=== PATIENT | female | born 1950 | race Caucasian/White ===

== ENCOUNTER 2017-04-11 08:24 | Outpatient (CLI) | payer MEDICARE, OTHER ==
[2017-04-11 08:53] LABS: BASOPHILS % (AUTO) 0.7 %; EOSINOPHILS # (AUTO) 0.1 10^3/uL (0.0-0.7); EOSINOPHILS % (AUTO) 2.2 %; HGB - HEMOGLOBIN 13.6 g/dL (12.0-16.0); LYMPHOCYTES # (AUTO) 1.9 10^3/uL (1.5-3.5); LYMPHOCYTES % (AUTO) 30.8 %; MEAN CORPUSCULAR HEMOGLOBIN 32.1 pg (27.0-31.0); MEAN CORPUSCULAR HGB CONC 33.9 g/dL (32.0-36.0); MEAN CORPUSCULAR VOLUME 94.6 fL (81.0-99.0); MEAN PLATELET VOLUME 7.6 fL (7.9-10.8); MONOCYTES # (AUTO) 0.4 10^3/uL (0.0-1.0); NEUTROPHILS # (AUTO) 3.7 10^3/uL (1.5-6.6); NEUTROPHILS % (AUTO) 59.3 %; PLT - PLATELET COUNT 224 10^3/uL (130-450); RED BLOOD COUNT 4.24 10^6/uL (4.20-5.40); WHITE BLOOD COUNT 6.2 x10^3/uL (4.8-10.8)
[2017-04-11 09:23] LABS: ALBUMIN 3.9 g/dL (3.2-5.5); ALBUMIN/GLOBULIN RATIO 1.5 (1.0-2.2); ALKALINE PHOSPHATASE 64 IU/L (42-121); ALT ALANINE AMINOTRANSFERASE 26 IU/L (10-60); AST ASPARTATE AMINOTRANSFERASE 22 IU/L (10-42); BILIRUBIN,TOTAL 0.7 mg/dL (0.2-1.0); BUN - BLOOD UREA NITROGEN 16 mg/dL (6-20); CALCIUM 9.2 mg/dL (8.5-10.3); CARBON DIOXIDE - CO2 26 mmol/L (21-32); CHLORIDE 105 mmol/L (101-111); CHOL/HDL RATIO 4.9 (<4.4); CHOLESTEROL 276 mg/dL; CREATININE 0.9 mg/dL (0.4-1.0); GFR - MDRD 63 (>89); GLUCOSE 89 mg/dL (70-100); HDL CHOLESTEROL 56 mg/dL; LDL CHOLESTEROL,CALCULATED 196 mg/dL; LDL/HDL RATIO 3.5 (<4.4); SODIUM 140 mmol/L (135-145); TOTAL PROTEIN 6.5 g/dL (6.7-8.2); VLDL CHOLESTEROL 24 mg/dL
[2017-04-11 10:24] LABS: THYROID STIMULATING HORMONE 2.37 uIU/mL (0.34-5.60)
[2017-04-11 10:26] LABS: FREE T4 (FREE THYROXINE) 0.73 ng/dL (0.58-1.64)
== END 2017-04-11 08:25 | disposition home or self-care (01) ==
LOC: LAB 08:24
PROVIDERS: ATTEND Family Medicine
DX: K21.9 Gastro-esophageal reflux disease without esophagitis (principal); E78.5 Hyperlipidemia, unspecified; E03.9 Hypothyroidism, unspecified; D72.819 Decreased white blood cell count, unspecified
CPT/HCPCS: 36415; 80053; 80061; 83721; 84439; 84443; 85025

== ENCOUNTER 2017-05-10 10:45 | Outpatient (CLI) | payer MEDICARE, OTHER | END 2017-05-10 10:46 | disposition home or self-care (01) | LOC: LAB.WCP 10:45 | PROVIDERS: ATTEND Family Medicine | DX: R05 Cough (principal) | CPT/HCPCS: 87275; 87276 ==

== ENCOUNTER 2017-06-24 08:48 | Outpatient (CLI) | payer MEDICARE, OTHER ==
--- NOTE | 2017-06-25 11:14 | Mammography Report ---
DIGITAL SCREENING MAMMOGRAM: 06/24/2017 CLINICAL INDICATION: A 66-year-old with family history of breast cancer, history of benign biopsy, history of reduction mammoplasty for screening. COMPARISON: 02/2015, 03/2013, 01/2012, 07/2010, 05/2009. TECHNIQUE: Routine CC and MLO projections were obtained of the breasts. FINDINGS: The breasts demonstrate scattered fibroglandular densities bilaterally. Postoperative changes of reduction mammoplasty are stable. Coarse and punctate, typically benign calcifications are present. No suspicious masses, clustered microcalcifications, or regions of architectural distortion are identified. IMPRESSION: BENIGN FINDINGS. RECOMMENDATION: Routine annual screening unless otherwise clinically indicated. BIRADS CATEGORY 2 - BENIGN FINDINGS. STANDARD QUALIFYING STATEMENTS: 1. This examination was reviewed with the aid of Computer-Aided Detection (CAD). 2. A negative or benign imaging report should not delay biopsy if clinically suspicious findings are present. Consider surgical consultation if warranted. More than 5% of cancers are not identified by imaging. 3. Dense breasts may obscure an underlying neoplasm. TD: 06/25/2017 11:11
== END 2017-06-24 08:49 | disposition home or self-care (01) ==
LOC: DI 08:48
PROVIDERS: ATTEND Family Medicine
DX: Z12.31 Encounter for screening mammogram for malignant neoplasm of breast (principal); Z80.3 Family history of malignant neoplasm of breast
CPT/HCPCS: 77067

== ENCOUNTER 2017-09-04 08:00 | Outpatient (CLI) | payer MEDICARE, OTHER | END 2017-09-04 08:01 | disposition home or self-care (01) | LOC: LAB.WCP 08:00 | PROVIDERS: ATTEND Physician Assistant | DX: B37.2 Candidiasis of skin and nail (principal) | CPT/HCPCS: 87480; 87510; 87660 ==

== ENCOUNTER 2018-08-07 15:36 | Outpatient (CLI) | payer MEDICARE, OTHER ==
--- NOTE | 2018-08-08 09:04 | Mammography Report ---
Reason: SCREENING MAMMO Procedure Date: 08/07/2018 Accession Number: [id number] / [id number] Procedure: SARAH - Screening Mammo w/Alan CPT Code: FULL RESULT: EXAM: Screening Mammo w/Alan DATE: 08/07/2018 4:15 PM CLINICAL HISTORY: Screening encounter. Family history of breast cancer in the mother at the age of 82. History of bilateral breast reduction surgery. History of left breast biopsy 1972 with negative pathology. TECHNIQUE: (B) - Bilateral CC and MLO views were obtained. COMPARISON: 06/24/2017 through 04/14/2013. PARENCHYMAL PATTERN: (A) - The breast(s) demonstrate(s) scattered fibroglandular densities. FINDINGS: A left breast 12:00 partially obscured isodense nodule demonstrates increasing associated calcifications, 3.6 cm from the nipple MLO image 41 and CC image 42. Bilateral postreduction changes including a nodularity in the right breast surgical bed otherwise demonstrate long-term stability, typically benign. There are no suspicious masses, calcifications, or areas of distortion in the right breast. IMPRESSION: Incomplete examination. BI-RADS category 0. RECOMMENDATION: (ADDMU) - Additional views using both Mammography and Ultrasound recommended. Left breast 12:00 additional spot magnification views and possibly ultrasound. BI-RADS CATEGORY: (0) - Incomplete Examination - need additional evaluation. STANDARD QUALIFYING STATEMENTS: 1. This examination was not reviewed with the aid of Computer-Aided Detection (CAD). 2. A negative or benign imaging report should not preclude biopsy if clinically suspicious findings are present. 3. Dense breasts may obscure an underlying neoplasm. 4. This examination was reviewed with the aid of 3D breast imaging (tomosynthesis).
== END 2018-08-07 15:37 | disposition home or self-care (01) ==
LOC: DI 15:36
DX: Z12.31 Encounter for screening mammogram for malignant neoplasm of breast (principal); R92.1 Mammographic calcification found on diagnostic imaging of breast; Z80.3 Family history of malignant neoplasm of breast
CPT/HCPCS: 77063; 77067

== ENCOUNTER 2018-08-13 12:40 | Outpatient (CLI) | payer MEDICARE, OTHER ==
--- NOTE | 2018-08-13 14:31 | Mammography Report ---
Reason: ABNORMAL MAMMOGRAM Procedure Date: 08/13/2018 Accession Number: [id number] / [id number] Procedure: [facility] - Diag Special Views Dig LT CPT Code: FULL RESULT: EXAM: Diag Special Views Dig LT, Breast Unilateral Limited DATE: 08/13/2018 1:02 PM CLINICAL HISTORY: Follow-up abnormal mammogram 08/07/2018 UNILATERAL LEFT MAMMOGRAM: TECHNIQUE: (L) - Left true lateral and magnification views were obtained. COMPARISON: 5 09/07/2018, 06/24/2017, 03/04/2015 and 04/14/2013. PARENCHYMAL PATTERN: (A) - The breasts demonstrate scattered fibroglandular densities bilaterally. FINDINGS: 7 or 8 slightly pleomorphic calcifications are seen in the left breast 2:00 position 3 to 4 cm from the nipple associated with faint increased soft tissue density. LEFT BREAST ULTRASOUND: TECHNIQUE: Targeted ultrasound was performed of the left breast in the area of clinical concern at 2 o'clock and 3-4 cm distance from the nipple. Color Doppler was employed as appropriate. FINDINGS: There is a lobulated 1.3 x 1 x 0.4 cm solid avascular mass with focal punctate echogenic calcification in the 2:00 position 3 cm from the nipple. This correlates with the mammographic finding. IMPRESSION: Suspicious. BI-RADS 4. RECOMMENDATION: Ultrasound-guided core biopsy left breast. BIRADS CATEGORY: 4 Results called to Samantha Styles 08/13/2018 at 2:00 PM STANDARD QUALIFYING STATEMENTS: 1. This examination was not reviewed with the aid of Computer-Aided Detection (CAD). 2. A negative or benign imaging report should not preclude biopsy if clinically suspicious findings are present. 3. Dense breasts may obscure an underlying neoplasm. 4. This examination was reviewed with the aid of 3D breast imaging (tomosynthesis).
== END 2018-08-13 12:41 | disposition home or self-care (01) ==
LOC: DI 12:40
PROVIDERS: ATTEND Registered Nurse
DX: R92.1 Mammographic calcification found on diagnostic imaging of breast (principal)
CPT/HCPCS: 76642

== ENCOUNTER 2018-08-20 10:40 | Outpatient (CLI) | payer MEDICARE, OTHER ==
[2018-08-20] MEDS ORDERED: BUFFERED LIDOCAINE 10 ML SYRINGE ONE (10:53)
[2018-08-20] MEDS ORDERED: BUPIVACAINE 0.5%-EPI 1:200000 PF 10 ML VIAL ONE (10:53)
[2018-08-20] MEDS ORDERED: BUFFERED LIDOCAINE 10 ML SYRINGE IU ONE (13:38)
[2018-08-20] MEDS ORDERED: BUPIVACAINE 0.5%-EPI 1:200000 PF 10 ML VIAL SUBQ ONE (13:38)
--- NOTE | 2018-08-20 13:44 | Ultrasound Report ---
Reason: ABN MAMMO - LT BREAST NODULE Procedure Date: 08/20/2018 Accession Number: [id number] / [id number] Procedure: US - Biopsy Breast Core CPT Code: FULL RESULT: PROCEDURE: Ultrasound-guided needle biopsy left breast mass. CLINICAL DATA: Targeted mass measuring left breast mass with irregular margins in the 2 o'clock axis of the left breast. Informed consent was obtained. Using standard aseptic technique, both 1% buffered lidocaine and Sensorcaine were injected into the left breast for local anesthesia. A small jose alberto was made in the skin with a #11 blade. A 12-gauge IdleAir vacuum-assisted device was used to obtain 4 specimens. A specialized biopsy marker clip was placed into the biopsy cavity under ultrasound guidance. The patient was taken to separate mammography machine and a two-view digital mammography was performed to verify the clip placement and any complications. The mammography showed concordant clip placement. The wound was dressed and ice applied. The patient was observed for approximately 15 minutes, then was discharged from diagnostic imaging Department in good condition following instructions on wound care and obtaining biopsy results. The patient is scheduled to receive the biopsy results from the referring physician. The tissue was sent for histologic analysis. IMPRESSION: Ultrasound-guided biopsy of the left breast. AN ADDENDUM WILL BE MADE TO THIS REPORT WHEN PATHOLOGY IS REVIEWED TO ESTABLISH CONCORDANCE.
== END 2018-08-20 10:41 | disposition home or self-care (01) ==
LOC: DI 10:40
PROVIDERS: ATTEND Physician Assistant Medical
DX: N63.21 Unspecified lump in the left breast, upper outer quadrant (principal)
CPT/HCPCS: 19083

== ENCOUNTER 2018-08-29 10:09 | Outpatient (CLI) | payer MEDICARE, OTHER ==
[2018-08-29 17:37] LABS: EOSINOPHILS # (AUTO) 0.1 10^3/uL (0.0-0.7); EOSINOPHILS % (AUTO) 1.5 %; HGB - HEMOGLOBIN 14.3 g/dL (12.0-16.0); LYMPHOCYTES # (AUTO) 1.7 10^3/uL (1.5-3.5); LYMPHOCYTES % (AUTO) 33.4 %; MEAN CORPUSCULAR HEMOGLOBIN 31.5 pg (27.0-31.0); MEAN CORPUSCULAR HGB CONC 33.1 g/dL (32.0-36.0); MEAN CORPUSCULAR VOLUME 95.2 fL (81.0-99.0); MEAN PLATELET VOLUME 9.1 fL (7.9-10.8); MONOCYTES # (AUTO) 0.4 10^3/uL (0.0-1.0); NEUTROPHILS # (AUTO) 2.9 10^3/uL (1.5-6.6); NEUTROPHILS % (AUTO) 57.1 %; PLT - PLATELET COUNT 233 10^3/uL (130-450); RED BLOOD COUNT 4.55 10^6/uL (4.20-5.40); RED CELL DISTRIBUTION WIDTH 13.5 % (12.0-15.0)
[2018-08-29 18:10] LABS: ALBUMIN 3.9 g/dL (3.2-5.5); ALBUMIN/GLOBULIN RATIO 1.2 (1.0-2.2); ALKALINE PHOSPHATASE 75 IU/L (42-121); ALT ALANINE AMINOTRANSFERASE 24 IU/L (10-60); AST ASPARTATE AMINOTRANSFERASE 23 IU/L (10-42); BILIRUBIN,TOTAL 0.7 mg/dL (0.2-1.0); BUN - BLOOD UREA NITROGEN 16 mg/dL (6-20); CALCIUM 9.1 mg/dL (8.5-10.3); CARBON DIOXIDE - CO2 24 mmol/L (21-32); CHLORIDE 106 mmol/L (101-111); CHOL/HDL RATIO 4.4 (<4.4); CHOLESTEROL 284 mg/dL; CREATININE 0.7 mg/dL (0.4-1.0); GFR - MDRD 83 (>89); GLUCOSE 86 mg/dL (70-100); HDL CHOLESTEROL 64 mg/dL; LDL CHOLESTEROL,CALCULATED 205 mg/dL; LDL/HDL RATIO 3.2 (<4.4); SODIUM 138 mmol/L (135-145); TOTAL PROTEIN 7.1 g/dL (6.7-8.2); VLDL CHOLESTEROL 15 mg/dL
[2018-09-02 10:57] LABS: HB2 TOTAL 15.1 g/dL; HEMOGLOBIN A1C 0.57 g/dL; HEMOGLOBIN A1C % 5.6 % (4.6-6.2)
== END 2018-08-29 10:10 | disposition home or self-care (01) ==
LOC: LAB.F 10:09
PROVIDERS: ATTEND Registered Nurse
DX: N63.21 Unspecified lump in the left breast, upper outer quadrant (principal); J01.90 Acute sinusitis, unspecified; E78.5 Hyperlipidemia, unspecified; D72.819 Decreased white blood cell count, unspecified; M85.80 Other specified disorders of bone density and structure, unspecified site; K21.9 Gastro-esophageal reflux disease without esophagitis; E03.9 Hypothyroidism, unspecified
CPT/HCPCS: 36415; 80053; 80061; 81599; 83036; 83721; 84443; 85025

== ENCOUNTER 2018-09-16 09:08 | Outpatient (CLI) | payer MEDICARE, OTHER ==
--- NOTE | 2018-09-16 14:42 | DEXA Report ---
Reason: OSTEOPENIA Procedure Date: 09/16/2018 Accession Number: [id number] / [id number] Procedure: DEX - Dexa Spine and/or Hip CPT Code: FULL RESULT: EXAM: Dexa Spine and/or Hip DATE: 09/16/2018 9:50 AM CLINICAL HISTORY: Postmenopausal female with history of prednisone use and thyroid replacement therapy. History of osteopenia. TECHNIQUE: Dual energy x-ray absorptiometry (DXA) was performed on a Blackberry System. Regions measured are the AP Spine, femoral neck, and if needed forearm. COMPARISON: 03/03/2015 In accordance with the International Society for Clinical Densitometry (ISCD) guidelines, data from previous exams may be reanalyzed using current recommendations and techniques. This is done to allow a more accurate basis for comparison with the current study. FINDINGS: The data for the lumbar spine is as follows: L4 excluded due to presence of hardware. BMD (g/cm/cm) T-SCORE Z-SCORE REGION L1 0.868 -2.2 -0.9 L2 1.295 0.8 2.0 L3 1.087 -0.9 0.3 TOTAL 1.069 -0.8 0.4 NOTE: All evaluable vertebrae are used for classification The data for the hip is as follows: BMD (g/cm/cm) T-SCORE Z-SCORE REGION Neck 0.713 -2.3 -1.0 TOTAL 0.793 -1.7 -0.6 NOTE: The femoral neck or total proximal femur, whichever is lowest, is used for classification. IMPRESSION: THE WHO CLASSIFICATION BASED ON THE INTERNATIONAL REFERENCE STANDARD IS OSTEOPENIA, REFERENCE LEFT FEMORAL NECK. THE FRACTURE RISK IS INCREASED. RECOMMENDATION: Patients with diagnosis of osteoporosis or osteopenia should have regular bone mineral density assessment. For those eligible for Medicare, routine testing is allowed once every 2 years. Testing frequency can be increased for patients who have rapidly progressing disease or for those who are receiving medical therapy to restore bone mass. COMMENT: World Health Organization (WHO) definitions for osteoporosis and osteopenia: NORMAL BMD: T-score at -1.0 or higher, fracture risk is low OSTEOPENIA BMD: T-score between -1.0 and -2.5, fracture risk is increased. OSTEOPOROSIS BMD: T-score at -2.5 or lower, fracture risk is high. National Osteoporosis Foundation recommends: 1. Obtain adequate dietary calcium (at least 1200 mg per day) and vitamin D (400-800 international units per day). 2. Participate, as appropriate, in regular weightbearing and muscle-strengthening exercise. 3. Avoid tobacco use and reduce alcohol and caffeine intake. 4. For more detailed information see the website at www.NOF.org.
== END 2018-09-16 09:09 | disposition home or self-care (01) ==
LOC: DI 09:08
PROVIDERS: ATTEND Registered Nurse
DX: M85.88 Other specified disorders of bone density and structure, other site (principal)
CPT/HCPCS: 77080

== ENCOUNTER 2018-09-16 09:08 | Outpatient (CLI) | payer MEDICARE, OTHER ==
--- NOTE | 2018-09-16 16:55 | CT Report ---
Reason: CHRONIC MAXILLARY SINUSITIS Procedure Date: 09/16/2018 Accession Number: [id number] / [id number] Procedure: CT - Sinuses CPT Code: FULL RESULT: EXAM: CT SINUS EXAM DATE: 09/16/2018 09:19 AM. HISTORY: CHRONIC MAXILLARY SINUSITIS. COMPARISONS: MRI brain 06/26/2013. TECHNIQUE: Routine multi-axial CT imaging performed through the sinuses. Iodinated IV contrast: None. Reconstructions: Multiplanar reformats. In accordance with CT protocol optimization, one or more of the following dose reduction techniques were utilized for this exam: automated exposure control, adjustment of mA and/or KV based on patient size, or use of iterative reconstructive technique. FINDINGS: RIGHT Frontal: Normal. Ethmoid: Normal. Maxillary: Normal. Sphenoid: Normal. Drainage Pathways: The frontal recess, ostiomeatal complex and sphenoethmoidal recess are patent and normal. LEFT Frontal: Normal. Ethmoid: Normal. Maxillary: Trace membrane thickening Sphenoid: Normal. Drainage Pathways: The frontal recess, ostiomeatal complex and sphenoethmoidal recess are patent and normal. Nasal Cavity: Normal. No mass or significant anatomic abnormality evident. Osseous Structures: Unremarkable. Orbits: Unremarkable. Other: Nasopharyngeal soft tissues not enlarged. IMPRESSION: Essentially negative Sinus CT. No sinusitis. RADIA
== END 2018-09-16 09:09 | disposition home or self-care (01) ==
LOC: DI 09:08
PROVIDERS: ATTEND Otolaryngology Otolaryngology/Facial Plastic Surgery
DX: Z09 Encounter for follow-up examination after completed treatment for conditions other than malignant neoplasm (principal); Z87.09 Personal history of other diseases of the respiratory system; M85.88 Other specified disorders of bone density and structure, other site
CPT/HCPCS: 70486; 77080

== ENCOUNTER 2019-04-20 11:38 | Emergency (ER) | payer MEDICARE, OTHER ==
--- NOTE | 2019-04-20 12:22 | ED Physician Documentation ---
PD HPI HEENT - Stated complaint Stated Complaint: FLUID OUT OF NOSE - Chief complaint Chief Complaint: Heent - History obtained from History obtained from: Patient (68-year-old woman with history of sinus surgeries and deviated septum repair many months ago presents with painless clear fluid that started from her right nares last night especially when she bends forward. There is mild sinus pressure. No fevers. Mild headache.) Review of Systems Constitutional: denies: Fever, Chills Nose: reports: Rhinorrhea / runny nose, Congestion, Sinus pressure / pain. denies: Foreign Body Throat: denies: Sore throat Cardiac: denies: Chest pain / pressure, Palpitations PD PAST MEDICAL HISTORY - Past Medical History Cardiovascular: None Respiratory: None Endocrine/Autoimmune: HyPOthyroidism GI: None : None HEENT: None Psych: Depression Musculoskeletal: None, Osteoarthritis Derm: None - Past Surgical History Past Surgical History: Yes Ortho: Spine surgery - Present Medications Home Medications: Ambulatory Orders Medication Instructions Recorded Confirmed Bupropion HCl [Wellbutrin Xl] 300 mg PO DAILY 11/04/12 03/24/14 Fluticasone [Flonase] 1 sprays SUSY DAILY 11/04/12 03/24/14 Levothyroxine Sodium [Levoxyl] 50 mcg PO DAILY 11/04/12 03/24/14 Nadolol 0 mg PO DAILY 10/12/13 03/24/14 Sertraline HCl [Zoloft] 25 mg PO DAILY 10/12/13 03/24/14 oxyCODONE [Roxicodone] 5 mg PO Q4-6H PRN #10 tablet 10/12/13 03/24/14 polyethylene glycoL 3350 [Miralax] 17 gm PO DAILY PRN #7 packet 03/24/14 Mometasone Furoate [Nasonex] 1 spray NS BID #1 spray.pump 04/20/19 - Allergies Allergies/Adverse Reactions: Allergies Allergy/AdvReac Type Severity Reaction Status Date / Time No Known Drug Allergies Allergy Verified 04/20/19 11:47 - Social History Does the pt smoke?: No Smoking Status: Never smoker Does the pt drink ETOH?: No Does the pt have substance abuse?: No - Immunizations Immunizations are current?: No - POLST Patient has POLST: No PD ED PE NORMAL - Vitals Vital signs reviewed: Yes - General General: Alert and oriented X 3, No acute distress - HEENT HEENT: PERRL, EOMI, Ears normal, Pharynx benign - Neck Neck: Supple, no meningeal sign, No bony TTP - Neuro Neuro: Alert and oriented X 3, Normal speech - Psych Psych: Normal mood, Normal affect Results - Vitals Vitals: Vital Signs - 24 hr 04/20/19 11:47 Temperature 36.5 C Heart Rate 69 Respiratory 14 Rate Blood Pressure 132/89 H O2 Saturation 98 Oxygen O2 Source Room air - Rads (name of study) Ct Face Radiology: EMP read contemporaneously (Mild right-sided paranasal sinus disease without air-fluid levels, bone seem intact.) PD MEDICAL DECISION MAKING - ED course ED course: 68-year-old woman with clear fluid from the right side, some concern for CSF al though no high risk pre-existing conditions for that or trauma. CT was without evidence of defect of the cranial floor and did show some paranasal sinus disease. We were able to obtain a sample of the drainage and with the glucometer the return was "low." Departure - Departure Disposition: 01 Home, Self Care Clinical Impression: Nasal drainage, Sinus complaint Condition: Good Record reviewed to determine appropriate education?: Yes Instructions: ED Sinusitis No Abx Prescriptions: Mometasone Furoate [Nasonex] 1 spray NS BID #1 spray.pump Comments: You were seen today for nasal drainage, based on the history the concern would be that this was cerebrospinal fluid, the CT and glucose level were inconsistent with that. Return for new or worsening symptoms, severe headache or fever.
--- NOTE | 2019-04-20 13:06 | CT Report ---
Reason: clear nasal fluid Procedure Date: 04/20/2019 Accession Number: [id number] / [id number] Procedure: CT - MAXILLOFACIAL WO CPT Code: Final Report FULL RESULT: EXAM: CT MAXILLOFACIAL WITHOUT CONTRAST EXAM DATE: 04/20/2019 12:47 PM. CLINICAL HISTORY: Nasal discharge. COMPARISONS: SINUSES 09/16/2018 9:19 AM. TECHNIQUE: Thin-section axial images were acquired of the face without contrast. Post-processing: Coronal and sagittal reformats. Other: None. In accordance with CT protocol optimization, one or more of the following dose reduction techniques were utilized for this exam: automated exposure control, adjustment of mA and/or KV based on patient size, or use of iterative reconstructive technique. FINDINGS: Soft Tissue: The infratemporal fossa and parapharyngeal spaces are unremarkable. Orbits: Symmetric and unremarkable. Bones: No fracture or bone lesion. Temporomandibular Joints: The temporomandibular joints are symmetric and normally located. Sinuses: Postoperative changes related to bilateral maxillary antrectomy and ethmoidectomy is seen. There is mild mucoperiosteal thickening involving the right-sided paranasal sinuses. There are no air-fluid levels demonstrated. Other: None. IMPRESSION: 1. Mild diffuse right-sided paranasal sinus disease status post bilateral sinus surgery. No air-fluid levels demonstrated. 2. Facial bones and orbital structures intact. RADIA
[2019-04-20 13:54] VITALS: BP 154/85
== END 2019-04-20 14:01 | disposition home or self-care (01) ==
LOC: ED 11:38
DX: J34.89 Other specified disorders of nose and nasal sinuses (principal); R51 Headache
CPT/HCPCS: 70486; 99284

== ENCOUNTER 2019-08-28 13:59 | Outpatient (CLI) | payer MEDICARE ==
--- NOTE | 2019-08-31 12:38 | Mammography Report ---
BILATERAL DIGITAL SCREENING MAMMOGRAM 3D/2D: 08/28/2019 CLINICAL: Routine screening. Comparison is made to exams dated: 08/20/2018 mammogram, 08/13/2018 mammogram, 08/07/2018 mammogram, 06/24 mammogram, and 03/04/2015 mammogram - [facility]. The tissue of both breasts is predominantly fatty. There is a biopsy clip in the left breast. No significant masses, calcifications, or other findings are seen in either breast. There has been no significant interval change. IMPRESSION: NEGATIVE There is no mammographic evidence of malignancy. A 1 year screening mammogram is recommended. This exam was interpreted at Station ID: [id number]. NOTE: For mammograms, a report in lay terms will be sent to the patient. Approximately 15% of breast malignancies will not be visualized mammographically. In the management of a palpable breast mass, a negative mammogram must not discourage biopsy of a clinically suspicious lesion. Electronically Signed By: Rocael bailon/jude:08/28/2019 16:04:10 ACR BI-RADS Category 1: Negative 3341F PARENCHYMAL PATTERN: (F) - The breast(s) demonstrate(s) diffuse fatty replacement. BI-RADS CATEGORY: (1) - 1 RECOMMENDATION: (ANNUAL) - Recommend routine annual screening mammography. [id number] 1 year screening LATERALITY: (B)
== END 2019-08-28 14:00 | disposition home or self-care (01) ==
LOC: DI 13:59
PROVIDERS: ATTEND Registered Nurse
DX: Z12.31 Encounter for screening mammogram for malignant neoplasm of breast (principal)
CPT/HCPCS: 77063; 77067

== ENCOUNTER 2019-08-28 14:54 | Outpatient (CLI) | payer MEDICARE ==
--- NOTE | 2019-08-28 16:58 | XRAY Report ---
PROCEDURE: Finger(s) LT INDICATIONS: FINGER PAIN TECHNIQUE: AP hand, 2 views of the third finger(s) acquired. COMPARISON: None FINDINGS: Bones: No fractures or dislocations. Mild osteoarthritic changes throughout interphalangeal joints a re seen. No gross bony erosive changes are noted. No suspicious bony lesions. Soft tissues: No suspicious soft tissue calcifications. IMPRESSION: Osteoarthritic changes in third PIP and DIP joints. No gross bony erosion. No fracture or dislocation . Reviewed by: Wayne Zhao MD on 08/28/2019 4:56 PM PDT Approved by: Wayne Zhao MD on 08/28/2019 4:56 PM PDT Station ID: [id number]
== END 2019-08-28 14:55 | disposition home or self-care (01) ==
LOC: DI 14:54
PROVIDERS: ATTEND Registered Nurse
DX: M19.042 Primary osteoarthritis, left hand (principal)
CPT/HCPCS: 73140

== ENCOUNTER 2019-09-11 08:00 | Outpatient (CLI) | payer MEDICARE | END 2019-09-11 23:59 | disposition home or self-care (01) | LOC: LAB.R 08:00 | PROVIDERS: ATTEND Family Medicine | DX: J02.9 Acute pharyngitis, unspecified (principal); R53.83 Other fatigue; R51 Headache; Z20.828 Contact with and (suspected) exposure to other viral communicable diseases | CPT/HCPCS: 81599 ==

== ENCOUNTER 2019-11-09 09:59 | Outpatient (CLI) | payer MEDICARE ==
--- NOTE | 2019-11-09 13:12 | XRAY Report ---
PROCEDURE: Shoulder 3 View LT INDICATIONS: LEFT SHOULDER PAIN TECHNIQUE: 3 views of the shoulder were acquired. COMPARISON: None. FINDINGS: Bones: No fractures or dislocations. No suspicious bony lesions. Visualized ribs appear intact. Mi ld to moderate glenohumeral joint osteoarthritis with slight joint space narrowing and marginal osteo phytosis. Soft tissues: No suspicious soft tissue calcifications. IMPRESSION: [id number] left glenohumeral joint osteoarthritis. Reviewed by: Lilly Justice MD, PhD on 11/09/2019 1:11 PM PDT Approved by: Lilly Justice MD, PhD on 11/09/2019 1:11 PM PDT Station ID: [id number]
[2019-11-09 15:16] LABS: BASOPHILS % (AUTO) 0.7 %; EOSINOPHILS # (AUTO) 0.1 10^3/uL (0.0-0.7); EOSINOPHILS % (AUTO) 1.5 %; HGB - HEMOGLOBIN 14.6 g/dL (12.0-16.0); LYMPHOCYTES # (AUTO) 1.6 10^3/uL (1.5-3.5); LYMPHOCYTES % (AUTO) 29.6 %; MEAN CORPUSCULAR HEMOGLOBIN 31.5 pg (27.0-31.0); MEAN CORPUSCULAR VOLUME 95.7 fL (81.0-99.0); MEAN PLATELET VOLUME 10.5 fL (7.9-10.8); MONOCYTES # (AUTO) 0.4 10^3/uL (0.0-1.0); MONOCYTES % (AUTO) 7.6 %; NEUTROPHILS # (AUTO) 3.3 10^3/uL (1.5-6.6); NEUTROPHILS % (AUTO) 60.4 %; PLT - PLATELET COUNT 260 10^3/uL (130-450); RED BLOOD COUNT 4.63 10^6/uL (4.20-5.40); RED CELL DISTRIBUTION WIDTH 14.1 % (12.0-15.0); WHITE BLOOD COUNT 5.4 x10^3/uL (4.8-10.8)
[2019-11-09 15:56] LABS: ALBUMIN 4.1 g/dL (3.2-5.5); ALBUMIN/GLOBULIN RATIO 1.2 (1.0-2.2); ALKALINE PHOSPHATASE 85 IU/L (42-121); ALT ALANINE AMINOTRANSFERASE 19 IU/L (10-60); AST ASPARTATE AMINOTRANSFERASE 19 IU/L (10-42); BILIRUBIN,TOTAL 1.1 mg/dL (0.2-1.0); BUN - BLOOD UREA NITROGEN 10 mg/dL (6-20); CALCIUM 9.6 mg/dL (8.5-10.3); CARBON DIOXIDE - CO2 27 mmol/L (21-32); CHLORIDE 104 mmol/L (101-111); CHOLESTEROL 331 mg/dL; CREATININE 0.7 mg/dL (0.4-1.0); GLUCOSE 90 mg/dL (70-100); HDL CHOLESTEROL 66 mg/dL; LDL CHOLESTEROL,CALCULATED 246 mg/dL; LDL/HDL RATIO 3.7 (<4.4); SODIUM 138 mmol/L (135-145); TOTAL PROTEIN 7.4 g/dL (6.7-8.2); VLDL CHOLESTEROL 19 mg/dL
== END 2019-11-09 10:00 | disposition home or self-care (01) ==
LOC: LAB.S 09:59 → DI.S 10:00
PROVIDERS: ATTEND Registered Nurse
DX: M19.012 Primary osteoarthritis, left shoulder (principal); E78.5 Hyperlipidemia, unspecified; D72.819 Decreased white blood cell count, unspecified; E03.9 Hypothyroidism, unspecified
CPT/HCPCS: 36415; 80053; 80061; 83721; 84443; 85025

== ENCOUNTER 2020-10-06 10:12 | Outpatient (CLI) | payer MEDICARE, OTHER ==
[2020-10-06 14:41] LABS: BASOPHILS # (AUTO) 0.1 10^3/uL (0.0-0.1); BASOPHILS % (AUTO) 0.9 %; EOSINOPHILS # (AUTO) 0.1 10^3/uL (0.0-0.7); EOSINOPHILS % (AUTO) 2.1 %; HCT - HEMATOCRIT 43.6 % (37.0-47.0); HGB - HEMOGLOBIN 14.2 g/dL (12.0-16.0); LYMPHOCYTES # (AUTO) 1.7 10^3/uL (1.5-3.5); LYMPHOCYTES % (AUTO) 29.8 %; MEAN CORPUSCULAR HEMOGLOBIN 31.6 pg (27.0-31.0); MEAN CORPUSCULAR HGB CONC 32.6 g/dL (32.0-36.0); MEAN CORPUSCULAR VOLUME 96.9 fL (81.0-99.0); MEAN PLATELET VOLUME 10.5 fL (7.9-10.8); MONOCYTES # (AUTO) 0.5 10^3/uL (0.0-1.0); MONOCYTES % (AUTO) 8.1 %; NEUTROPHILS # (AUTO) 3.4 10^3/uL (1.5-6.6); NEUTROPHILS % (AUTO) 58.8 %; PLT - PLATELET COUNT 220 10^3/uL (130-450); RED CELL DISTRIBUTION WIDTH 13.5 % (12.0-15.0); WHITE BLOOD COUNT 5.8 x10^3/uL (4.8-10.8)
[2020-10-06 15:11] LABS: ALBUMIN/GLOBULIN RATIO 1.3 (1.0-2.2); ALKALINE PHOSPHATASE 77 IU/L (42-121); ALT ALANINE AMINOTRANSFERASE 29 IU/L (10-60); AST ASPARTATE AMINOTRANSFERASE 27 IU/L (10-42); BILIRUBIN,TOTAL 0.9 mg/dL (0.2-1.0); BUN - BLOOD UREA NITROGEN 15 mg/dL (6-20); CALCIUM 9.1 mg/dL (8.5-10.3); CARBON DIOXIDE - CO2 28 mmol/L (21-32); CHLORIDE 102 mmol/L (101-111); CHOL/HDL RATIO 5.2 (<4.4); CHOLESTEROL 327 mg/dL; CREATININE 0.6 mg/dL (0.4-1.0); GFR - MDRD 99 (>89); GLUCOSE 89 mg/dL (70-100); HDL CHOLESTEROL 63 mg/dL; LDL CHOLESTEROL,CALCULATED 236 mg/dL; LDL/HDL RATIO 3.7 (<4.4); POTASSIUM 4.3 mmol/L (3.5-5.0); SODIUM 139 mmol/L (135-145); TOTAL PROTEIN 7.1 g/dL (6.7-8.2); TRIGLYCERIDES 142 mg/dL; VLDL CHOLESTEROL 28 mg/dL
[2020-10-06 15:22] LABS: THYROID STIMULATING HORMONE 2.23 uIU/mL (0.34-5.60)
== END 2020-10-06 10:13 | disposition home or self-care (01) ==
LOC: LAB.S 10:12
PROVIDERS: ATTEND Registered Nurse
DX: E78.5 Hyperlipidemia, unspecified (principal); G43.909 Migraine, unspecified, not intractable, without status migrainosus; K21.9 Gastro-esophageal reflux disease without esophagitis; E03.9 Hypothyroidism, unspecified; Z79.899 Other long term (current) drug therapy
CPT/HCPCS: 36415; 80053; 80061; 83721; 84443; 85025

== ENCOUNTER 2020-10-31 16:45 | Outpatient (CLI) | payer MEDICARE, OTHER ==
--- NOTE | 2020-11-01 10:15 | Ultrasound Report ---
PROCEDURE: Head or Neck Soft Tissue INDICATIONS: NECK PAIN TECHNIQUE: Real-time scanning was performed of the thyroid gland, with image documentation. COMPARISON: 07/26/2014 FINDINGS: Right: Thyroid lobe measures 4.0 x 1.5 x 1.23 cm, and is homogeneous in echotexture. Left: Thyroid lobe measures 4.1 x 1.2 x 1.6 cm, and demonstrates 2 nodules Isthmus: 5 mm thick. Nodule number: One Location: Left mid thyroid Size: 1.1 x 0.8 x 1.0 cm. Composition: Solid Echogenicity: Hypoechoic Shape: wider than tall. Margins: Smooth Echogenic foci: None Total points: 4 ACR TI-RADS category: 4; follow-up at 1, 2, 3, and 5 years recommended based on size Nodule number: Two Location: Left inferior thyroid Size: Less than 0.5 cm. Composition: Solid Echogenicity: Hypoechoic Shape: wider than tall. Margins: Smooth Echogenic foci: None Total points: 4 ACR TI-RADS category: 4; follow-up at 1, 2, 3, and 5 years recommended based on size IMPRESSION: TI-RADS 4 lesions as described above. Follow-up is recommended as above. ACR TI-RADS definitions and recommendations: TI-RADS 1 (benign): 0 points. FNA not needed. TI-RADS 2 (not suspicious): 2 points. FNA not needed. TI-RADS 3 (mildly suspicious): 3 points. ? FNA if 2.5 cm or larger, follow up if 1.5 cm or larger (at 1, 3, and 5 years). TI-RADS 4 (moderately suspicious): 4-6 points. ? FNA if 1.5 cm or larger, follow up if 1 cm or larger (at 1, 2, 3, and 5 years). TI-RADS 5 (highly suspicious): 7 points or more. ? FNA if 1 cm or larger, follow up if 0.5 cm or larger (every year for 5 years). Reviewed by: Andreina Gates MD on 11/01/2020 10:14 AM PDT Approved by: Andreina Gates MD on 11/01/2020 10:14 AM PDT Station ID: [id number]
== END 2020-10-31 16:46 | disposition home or self-care (01) ==
LOC: DI 16:45
PROVIDERS: ATTEND Registered Nurse
DX: M54.2 Cervicalgia (principal); E04.2 Nontoxic multinodular goiter

== ENCOUNTER 2020-11-23 17:04 | Outpatient (CLI) | payer MEDICARE, OTHER ==
[2020-11-23 20:29] LABS: BASOPHILS % (AUTO) 0.6 %; EOSINOPHILS # (AUTO) 0.1 10^3/uL (0.0-0.7); EOSINOPHILS % (AUTO) 1.7 %; HCT - HEMATOCRIT 42.2 % (37.0-47.0); HGB - HEMOGLOBIN 13.8 g/dL (12.0-16.0); LYMPHOCYTES # (AUTO) 2.2 10^3/uL (1.5-3.5); LYMPHOCYTES % (AUTO) 33.8 %; MEAN CORPUSCULAR HEMOGLOBIN 31.6 pg (27.0-31.0); MEAN CORPUSCULAR HGB CONC 32.7 g/dL (32.0-36.0); MEAN CORPUSCULAR VOLUME 96.6 fL (81.0-99.0); MEAN PLATELET VOLUME 10.9 fL (7.9-10.8); MONOCYTES # (AUTO) 0.6 10^3/uL (0.0-1.0); MONOCYTES % (AUTO) 8.6 %; NEUTROPHILS # (AUTO) 3.6 10^3/uL (1.5-6.6); PLT - PLATELET COUNT 229 10^3/uL (130-450); RED BLOOD COUNT 4.37 10^6/uL (4.20-5.40); RED CELL DISTRIBUTION WIDTH 13.3 % (12.0-15.0); WHITE BLOOD COUNT 6.5 x10^3/uL (4.8-10.8)
[2020-11-23 20:37] LABS: ALBUMIN/GLOBULIN RATIO 1.2 (1.0-2.2); BILIRUBIN,TOTAL 0.7 mg/dL (0.2-1.0); CALCIUM 9.1 mg/dL (8.5-10.3); CREATININE 0.7 mg/dL (0.4-1.0); POTASSIUM 3.7 mmol/L (3.5-5.0); TOTAL PROTEIN 7.3 g/dL (6.7-8.2)
== END 2020-11-23 23:59 | disposition home or self-care (01) ==
LOC: LAB.S 17:04
PROVIDERS: ATTEND Emergency Medicine
DX: R19.7 Diarrhea, unspecified (principal)
CPT/HCPCS: 36415; 80053; 85025

== ENCOUNTER 2020-11-24 08:00 | Outpatient (CLI) | payer MEDICARE, OTHER | END 2020-11-24 23:59 | disposition home or self-care (01) | LOC: LAB.S 08:00 | PROVIDERS: ATTEND Emergency Medicine | DX: R19.7 Diarrhea, unspecified (principal) | CPT/HCPCS: 81599; 87045; 87177; 87209; 87427; 87449; 87493 ==

== ENCOUNTER 2021-04-09 08:00 | Outpatient (CLI) | payer MEDICARE, OTHER | END 2021-04-09 23:59 | disposition home or self-care (01) | LOC: LAB.S 08:00 | PROVIDERS: ATTEND Physician Assistant Medical | DX: R06.02 Shortness of breath (principal); Z20.822 Contact with and (suspected) exposure to COVID-19 ==

== ENCOUNTER 2021-07-24 15:06 | Outpatient (CLI) | payer MEDICARE, OTHER ==
--- NOTE | 2021-07-25 16:06 | Mammography Report ---
BILATERAL DIGITAL SCREENING MAMMOGRAM 3D/2D: 07/24/2021 CLINICAL: Routine screening. Family history of breast cancer. Comparison is made to exams dated: 08/28/2019 mammogram, 08/20/2018 mammogram, 08/13/2018 mammogram, and 08/13/2018 ultrasound - [facility]. The tissue of both breasts is predominantly fa tty. There is a developing irregular high density asymmetry with a spiculated margin in the right breast p osterior depth lateral region seen on the craniocaudal view only. This is more prominent and increas ed in size. No other significant masses, calcifications, or other findings are seen in either breast. IMPRESSION: INCOMPLETE: NEEDS ADDITIONAL IMAGING EVALUATION The developing irregular high density asymmetry in the right breast is indeterminate. Additional vie ws with possible ultrasound are recommended. This exam was interpreted at Station ID: [id number]. NOTE: For mammograms, a report in lay terms will be sent to the patient. Approximately 15% of breast malignancies will not be visualized mammographically. In the management of a palpable breast mass, a negative mammogram must not discourage biopsy of a clinically suspicious lesion. Electronically Signed By: Poppy marti/:07/25/2021 11:15:22 ACR BI-RADS Category 0: Incomplete 3340F PARENCHYMAL PATTERN: (F) - The breast(s) demonstrate(s) diffuse fatty replacement. BI-RADS CATEGORY: (0) - 0 Mammo and [place] [id number] Immediate follow-up LATERALITY: (B)
== END 2021-07-24 15:07 | disposition home or self-care (01) ==
LOC: DI.S 15:06
DX: Z12.31 Encounter for screening mammogram for malignant neoplasm of breast (principal); Z80.3 Family history of malignant neoplasm of breast; R92.8 Other abnormal and inconclusive findings on diagnostic imaging of breast

== ENCOUNTER 2021-09-13 08:08 | Outpatient (CLI) | payer MEDICARE, OTHER ==
--- NOTE | 2021-09-13 17:44 | Ultrasound Report ---
PROCEDURE: Abdomen Complete INDICATIONS: LEFT UPPER QUAD ABD PAIN TECHNIQUE: Real-time scanning was performed of the abdominal and retroperitoneal organs, with image documentatio n. COMPARISON: CT abdomen and pelvis dated 11/04/2012 FINDINGS: Liver: Liver is normal in size and homogeneous in echotexture. Gallbladder: Unremarkable Biliary ducts: Intrahepatic bile ducts are non-dilated. Extrahepatic bile duct caliber measures 1.7 mm at the level of the common hepatic duct and 6.1 mm at the level of the common bile duct. Normal is 6-7 mm or less in diameter, or 10 mm or less post-cholecystectomy. Pancreas: Visualized portions of the pancreas are sonographically normal. Spleen: Spleen is normal in size and homogeneous in echotexture. Kidneys: Kidneys are normal in size and echotexture. Right kidney measures 10.6 cm long; left kidne y measures 10.8 cm long. No hydronephrosis or nephrolithiasis. Left peripelvic cysts are felt to be present as opposed to left hydronephrosis. This is similar to the CT findings from 2013. No solid ma sses. Aorta: Visualized aorta is normal in caliber at less than 3 cm. Iliacs: Proximal common iliac arteries are normal in caliber at less than 2.5 cm. IVC: Intrahepatic inferior vena cava is patent. Miscellaneous: No free abdominal fluid. IMPRESSION: Unremarkable abdominal ultrasound. Reviewed by: Omar Swan MD on 09/13/2021 5:42 PM PDT Approved by: Omar Swan MD on 09/13/2021 5:42 PM PDT Station ID: [id number]
== END 2021-09-13 08:09 | disposition home or self-care (01) ==
LOC: DI 08:08
PROVIDERS: ATTEND Registered Nurse
DX: R10.12 Left upper quadrant pain (principal)

== ENCOUNTER 2022-07-28 16:34 | Outpatient (CLI) | payer MEDICARE, OTHER | END 2022-07-28 23:59 | disposition critical access hospital (66) | LOC: EMS 16:34 | DX: S00.83XA Contusion of other part of head, initial encounter (principal); S50.02XA Contusion of left elbow, initial encounter; W18.30XA Fall on same level, unspecified, initial encounter; Y93.H9 Activity, other involving exterior property and land maintenance, building and construction; Y92.007 Garden or yard of unspecified non-institutional (private) residence as the place of occurrence of the external cause | CPT/HCPCS: A0425; A0427 ==

== ENCOUNTER 2022-08-28 10:26 | Outpatient (CLI) | payer MEDICARE, OTHER ==
--- NOTE | 2022-08-28 11:21 | SLEEP CARE CONSULTATION ---
Information from patient questionnaire entered by Rosita Forbes. I have reviewed and concur with the information entered by Rosita Forbes. This document represents the service I personally performed and the decisions made by me, Neena Metcalf ARNP. History of Present Illness Service Date and Time: 08/28/2022 1026 Reason for Visit: New patient Chief Complaint: reports: Snoring, Excessive daytime sleepiness, Fatigue, Frequent awakenings at night Date of Onset: years Usual bedtime: 11 PM Time it takes to fall asleep: 30-60 minutes Snores at night: Yes Observed to quit breathing while asleep: Yes Number of times waking at night: 3-4 Reasons for waking at night: reports: Snoring, Pain, Bathroom. denies: Choking, Gasping for air Toss, Turn, or Twitch while sleeping: No Recalls having dreams: Yes Usually gets out of bed at: 0800 Feels refreshed in the morning: Yes (1/3 of mornings feel like need nap) Morning headache: No Sleepy or fatigued during the day: Yes Ever fallen asleep while driving: No Takes day naps: Yes (daily for about an hour) Dreams during day naps: No Prior sleep studies: No Additional HPI information: I had the pleasure of seeing SILVIA THOMAS today regarding the possibility of her having a sleep disorder. Her current complaints are excessive daytime sleepiness, fatigue, frequent night awakenings and snoring. She states the reason she is coming in is because she had her knee replaced at the hospital and the nurse told her that she needed to get a sleep study. She states she went somewhere with her sister and shared a room. Her sister told her she snored horribly. She states she is sleeping alone now because her 5 years ago but he did tell her that she snored and talked in her sleep occasionally. She states about a third of the time she does not wake up feeling refreshed in the morning. She will also take a nap daily for about an hour. - Parasomnia Symptoms Ever been unable to move upon waking from sleep: No Walks in sleep: No Talks in sleep: Yes (late told her she did a little bit) Ever acted out dreams in sleep: No Ever felt weak in the knees when startled or emotional: No Bothered by creepy, crawly, restless sensations in legs: No Problems with memory or concentration: Yes (more concentration) Subjective Initial [place] Sleepiness Scale score: 9 (08/28/2022) Past Medical History Past Medical History: reports: Arthritis, Hypothyroidism, Depression, Other (Left total knee 05/2022) Social History The patient's occupation is a RE. Patient is / and lives in . Have you smoked in the past 12 months: No Alcohol use: No Caffeine use: Yes Caffeine amount and frequency: 1-2 cups daily Family History Family history of sleep disordered breathing: No Allergies and Home Medications Known drug allergies: No Drug allergies reviewed: Yes Home medication list reviewed: Yes Allergy and home medication list: Allergies No Known Drug Allergies Allergy (Verified 08/27/22 21:20) Medications: [place] 3 Rosuvastatin Levothyroxine Bupropion Zoloft AREDS Eye injections, Avastin and Eylea Loratidine Review of Systems Weight gain over past 5 years: 10 Cardiovascular: denies: high blood pressure Gastrointestinal: reports: heartburn, abdominal pain Urinary: reports: frequency Neurological: reports: headaches Ear/Nose/Throat: reports: nasal congestion, sinus problems, wisdom teeth removed Endocrine: reports: thyroid disease, sluggishness Musculoskeletal: reports: joint pain, neck pain, back pain, joint swelling Immunologic: reports: sneezing Physical Exam Vital signs obtained and entered by: Neena Thapa NP Blood Pressure: 137/82 Cuff size: wrist (left) Heart Rate: 76 O2 Saturation: 99 Height: 5 ft 1 in Weight: 174 lb 9.6 oz Body Mass Index: 33.0 BMI Classification: Obese Neck circumference: 14.25 (inches) Mouth and throat: narrow oropharynx Soft palate: normal Hard palate: normal Uvula: normal Uvula visualization: 25% Mallampati Class III Tongue: normal in size Tonsils: small Neck: normal w/o lymphadenopathy or thyromegaly Heart: regular rate and rhythm Lungs: clear bilaterally Impression and Plan 1. Suspected Obstructive Sleep Apnea-Hypopnea Syndrome, as suggested by a history of loud and irregular snoring, observed cessation of breath while asle ep, frequent awakening during the night, unrefreshed sleep, cognitive impairment, and excessive daytime sleepiness. Narrow oropharynx and obesity are common predisposing factors for obstructive sleep apnea-hypopnea syndrome. I recommend proceeding to polysomnography to confirm the diagnosis and to assess severity. If the patient has significant sleep disordered breathing, a manual CPAP titration study will also be performed to find the optimal treatment pressure. I informed the patient of what the sleep studies involve and after some discussion, obtained agreement to proceed. The pathophysiology of obstructive sleep apnea-hypopnea syndrome was discussed with the patient and health risks of cardiovascular and cerebrovascular disease if not treated. Risks of drowsy driving discussed in detail and patient advised to avoid long distance driving and to puller machine at the first sign of drowsiness. Patient agreed to plan. * Schedule polysomnography +- manual CPAP titration study and return in 1-2 weeks after the study to discuss result and initiate therapy. * Avoid long distance driving or driving when feeling sleepy. * Avoid alcohol, sedative and muscle relaxant around bedtime. * Attempt to lose weight. * Review instructions provided by trained office staff on how to prepare for the sleep study. * Return for follow-up after sleep study completed. Counseling Topics: Weight loss health impact Visit Type: In Office Time Spent with Patient (minutes): 35 Provider Statement: I spent 100% of the Face to Face Visit with the patient with greater than 50% spent counseling the patient and coordination of care.
[2022-08-28 11:24] VITALS: BP 137/82
== END 2022-08-28 10:27 | disposition home or self-care (01) ==
LOC: SC 10:26
PROVIDERS: ATTEND Nurse Practitioner Family
DX: G47.10 Hypersomnia, unspecified (principal); R53.83 Other fatigue; G47.8 Other sleep disorders; R06.83 Snoring; R06.81 Apnea, not elsewhere classified; F32.A Depression, unspecified; E66.9 Obesity, unspecified; Z68.33 Body mass index [BMI] 33.0-33.9, adult
CPT/HCPCS: 99203; G0463; 99212

== ENCOUNTER 2022-09-16 20:24 | Outpatient (CLI) | payer MEDICARE, OTHER | END 2022-09-16 20:25 | disposition home or self-care (01) | LOC: SC 20:24 | PROVIDERS: ATTEND Nurse Practitioner Family | DX: G47.33 Obstructive sleep apnea (adult) (pediatric) (principal); E66.9 Obesity, unspecified; Z68.32 Body mass index [BMI] 32.0-32.9, adult | CPT/HCPCS: 95810 ==

== ENCOUNTER 2022-10-11 14:36 | Outpatient (CLI) | payer MEDICARE, OTHER ==
--- NOTE | 2022-10-11 14:05 | SLEEP CARE CONSULTATION ---
Information from patient questionnaire entered by Rosita Forbes. I have reviewed and concur with the information entered by Rosita Forbes. This document represents the service I personally performed and the decisions made by , Neena Metcalf ARNP. History of Present Illness Service Date and Time: 10/11/2022 1340 Initial [place] Sleepiness Scale score: 9 (08/28/2022) Current [place] Sleepiness Scale score: 15 (10/11/22) Additional HPI information: SILVIA THOMAS returns via video telehealth visit for follow up and results of the recently performed polysomnography. PSG showed moderate obstructive sleep apnea with an average AHI of 24 and adeola oxygen saturation of 85%. I explained the pathophysiology behind obstructive sleep apnea. We then spent quite a bit of time discussing different treatment options. For mild obstruct adela sleep apnea, surgery and oral appliance are alternatives to nasal CPAP therapy but in moderate or severe cases, nasal CPAP is the most effective and reliable treatment. Because apnea is primarily in supine position, then positional management therapy could be effective. Methods discussed such as positioning with pillows, using a T-shirt with tennis balls in the back or commercial products that have a pillow format on back to prevent supine sleep. I reviewed the impact of weight changes on sleep apnea and strongly recommended losing weight. Patient does not drink alcohol. Patient was cautioned about risks of drowsy driving until sleepiness symptoms resolve. Sleep Study - Results Type of Sleep Study: Polysomnography (COMPLETED 09/16/22) Prior sleep studies: No Polysomnography/Home Sleep Study results: IMPRESSION: The quality of the study is good. The patient had slightly reduced sleep efficiency due to several awakenings during the night. The sleep architecture was abnormal for sleep fragmentation and reduced amount of time spent in REM sleep. Respiratory monitoring showed moderate obstructive sleep apnea-hypopnea (AHI = 24.0) associated with frequent arousals, oxyhemoglobin desaturation and mild hypoxia (adeola oxygen saturation of 85%). The respiratory events occurred predominantly during supine sleep (supine AHI = 36.0; non-supine = 5.27). Snore was light to moderate in intensity. There was no significant periodic leg movement of sleep. Cardiac rhythm was normal sinus rhythm without significant arrhythmia. No abnormal behavior (parasomnia) observed during the night. Allergies and Home Medications Known drug allergies: No Drug allergies reviewed: Yes Home medication list reviewed: Yes (no changes) Allergy and home medication list: Allergies No Known Drug Allergies Allergy (Verified 10/10/22 13:35) Review of Systems Review of systems same as previous: Yes (no changes) Physical Exam Vital signs obtained and entered by: ROSITA Ortega MA Height: 5 ft 1 in (PER PT) Weight: 170 lb (PER PT) Body Mass Index: 32.1 BMI Classification: Obese Impression and Plan 1. Obstructive Sleep Apnea-Hypopnea Syndrome, moderate, with lowest oxygen saturation of 85%. Obviously this is the cause of the patients symptoms of unrefreshed sleep, and excessive daytime sleepiness. Positive pressure therapy could benefit depression. After thoroughly discussing her options, patient would like to try the oral appliance to control her sleep apnea. I explained that she would have to also have to avoid sleeping supine because she has severe sleep apena on her back and the oral appliance will not be effective in optimally controlling her apneas when on her back. She states she normally sleeps on her side anyway and does not think this will be a problem. The patient chose an oral appliance with positional therapy to treat their apnea. A follow up will be made for a month after she obtains the oral appliance to see if appliance has reduced symptoms. If so, another polysomnography will be ordered with use of the oral appliance to check efficacy in reducing apnea. Until patient is able to use the oral appliance, positional therapy is advised to avoid supine sleep with pillow positioning or one of the commercial products because apnea is more severe supine. She voiced understanding. 2. Hypoxemia, mild, with a adeola oxygen saturation of 85% and 28.3 minutes spent under 90%. Her baseline oxygen saturation was normal with an average oxygen saturation of 90%. 2. Obesity, unspecified. Currently patients BMI is 32.1. Obesity increases the risk of apnea, CPAP pressure requirements and overall health risks especially cardiovascular and diabetes. Thus patient is advised to lose weight. * Oral appliance with positional therapy. * Attempt to lose weight. * Avoid supine sleep * The patient is again cautioned about driving until sleepiness completely resolves. * Return one month after CPAP obtained. I will assess response to therapy and compliance at that time. Counseling Topics: Sleeping position, Weight loss health impact Prescriptions: Other (Oral appliance) Visit Type: Telehealth Video Video Type: Doximity Patient Location: Home Location of Provider: Office Patient agrees and consents to this telehealth visit type: Yes Patient agrees to have their insurance billed: Yes Time Spent with Patient (minutes): 20 Provider Statement: I spent 100% of the Telehealth Video Call with the patient with greater than 50% spent counseling the patient and coordination of care.
== END 2022-10-11 14:37 | disposition home or self-care (01) ==
LOC: SC 14:36
PROVIDERS: ATTEND Nurse Practitioner Family
DX: G47.33 Obstructive sleep apnea (adult) (pediatric) (principal); R09.02 Hypoxemia; E66.9 Obesity, unspecified; Z68.32 Body mass index [BMI] 32.0-32.9, adult

== ENCOUNTER 2023-04-12 09:47 | Outpatient (CLI) | payer MEDICARE, OTHER ==
[2023-04-12 15:24] LABS: BASOPHILS % (AUTO) 0.5 %; EOSINOPHILS # (AUTO) 0.1 10^3/uL (0.0-0.7); EOSINOPHILS % (AUTO) 1.7 %; HCT - HEMATOCRIT 41.1 % (37.0-47.0); LYMPHOCYTES # (AUTO) 1.3 10^3/uL (1.5-3.5); MEAN CORPUSCULAR HEMOGLOBIN 30.3 pg (27.0-31.0); MEAN CORPUSCULAR HGB CONC 31.6 g/dL (32.0-36.0); MEAN CORPUSCULAR VOLUME 95.8 fL (81.0-99.0); MONOCYTES # (AUTO) 0.5 10^3/uL (0.0-1.0); MONOCYTES % (AUTO) 8.2 %; NEUTROPHILS # (AUTO) 4.6 10^3/uL (1.5-6.6); NEUTROPHILS % (AUTO) 69.3 %; PLT - PLATELET COUNT 223 10^3/uL (130-450); RED BLOOD COUNT 4.29 10^6/uL (4.20-5.40); RED CELL DISTRIBUTION WIDTH 14.8 % (12.0-15.0); WHITE BLOOD COUNT 6.6 x10^3/uL (4.8-10.8)
[2023-04-12 15:43] LABS: ALBUMIN 4.1 g/dL (3.2-5.5); ALBUMIN/GLOBULIN RATIO 1.5 (1.0-2.2); ALKALINE PHOSPHATASE 84 IU/L (42-121); ALT ALANINE AMINOTRANSFERASE 14 IU/L (10-60); AST ASPARTATE AMINOTRANSFERASE 16 IU/L (10-42); BILIRUBIN,TOTAL 0.6 mg/dL (0.2-1.0); BUN - BLOOD UREA NITROGEN 14 mg/dL (6-20); CALCIUM 9.4 mg/dL (8.5-10.3); CARBON DIOXIDE - CO2 28 mmol/L (21-32); CHLORIDE 107 mmol/L (101-111); CHOL/HDL RATIO 2.9 (<4.4); CHOLESTEROL 155 mg/dL; CREATININE 0.8 mg/dL (0.6-1.3); GFR - MDRD 71 (>89); GLUCOSE 89 mg/dL (74-104); HDL CHOLESTEROL 54 mg/dL; LDL CHOLESTEROL,CALCULATED 86 mg/dL; LDL/HDL RATIO 1.6 (<4.4); POTASSIUM 4.2 mmol/L (3.5-4.5); SODIUM 141 mmol/L (135-145); TOTAL PROTEIN 6.9 g/dL (6.4-8.9); TRIGLYCERIDES 76 mg/dL (48-352); VLDL CHOLESTEROL 15 mg/dL
[2023-04-12 16:11] LABS: THYROID STIMULATING HORMONE 3.49 uIU/mL (0.34-5.60)
== END 2023-04-12 09:48 | disposition home or self-care (01) ==
LOC: LAB.S 09:47
PROVIDERS: ATTEND Registered Nurse
DX: E78.5 Hyperlipidemia, unspecified (principal); E03.9 Hypothyroidism, unspecified; Z13.228 Encounter for screening for other metabolic disorders; Z13.0 Encounter for screening for diseases of the blood and blood-forming organs and certain disorders involving the immune mechanism
CPT/HCPCS: 36415; 80053; 80061; 83721; 84443; 85025

== ENCOUNTER 2023-07-23 09:52 | Outpatient (CLI) | payer MEDICARE, OTHER ==
--- NOTE | 2023-07-23 12:50 | DEXA Report ---
PROCEDURE: Dexa Spine and/or Hip INDICATIONS: POST MENOPAUSAL TECHNIQUE: Dual energy x-ray absorptiometry (DXA) was performed on a [employer]ub System. Regions measur ed are the AP Spine, femoral neck, and if needed forearm. COMPARISON: 09/16/2018 FINDINGS: Lumbar Spine: Bone Mineral Density: 1.078 g/cm/cm,T score: -0.9. There has been no statistically significant sheikh e in bone mineral density since the prior study. Left Femoral Neck: Bone Mineral Density: 0.683 g/cm/cm, T score: -2.6. Left Hip: Bone Mineral Density: 0.729 g/cm/cm,T score: -2.2. Since the most recent prior study, there has been a statistically significant decrease in bone mineral density by 9.7 percent. (T score greater or equal to -1.0: NORMAL) (T score from -1.1 to -2.4: OSTEOPENIA) (T score less than or equal to -2.5 to: OSTEOPOROSIS) Impression: By WHO criteria, this patient has severe osteopenia No statistical interval change in bone mineral density of the lumbar spine. Interval statistical decr ease in bone mineral density of the hip. Patients with diagnosis of osteoporosis or osteopenia should have regular bone mineral density assess ment. For those eligible for Medicare, routine testing is allowed once every 2 years. Testing frequ ency can be increased for patients who have rapidly progressing disease or for those who are receivin g medical therapy to restore bone mass. Reviewed by: Davin Ramirez MD on 07/23/2023 12:48 PM PDT Approved by: Davin Ramirez MD on 07/23/2023 12:48 PM PDT Station ID: [id number]
== END 2023-07-23 09:53 | disposition home or self-care (01) ==
LOC: DI 09:52
PROVIDERS: ATTEND Registered Nurse
DX: M81.0 Age-related osteoporosis without current pathological fracture (principal); Z78.0 Asymptomatic menopausal state

== ENCOUNTER 2023-07-23 09:54 | Outpatient (CLI) | payer MEDICARE, OTHER ==
--- NOTE | 2023-07-23 11:59 | CT Report ---
PROCEDURE: CT heart coronary calcium scoring without contrast TECHNIQUE: MDCT non-contrast cardiac gated images were obtained from the eduardo through the inferior margin of the heart. Calcium score was obtained by post-processing with external software. Automated exposure control was used to reduce patient radiation dose. INDICATION: CAD screening, low or intermediate risk COMPARISON: None available FINDINGS: Image quality: Excellent Agatston method: Total calcium score: 0 L main: 0 LAD: 0 LCX: 0 RCA: 0 Heart findings: Mitral annular calcifications: No significant calcifications. Aortic valve: No significant valvular calcifications. Chambers: No significant enlargement on this non-dynamic study. Pericardium: No effusion. Calcification is seen of the aortic arch. Other findings (note the chest is incompletely imaged on this limited non-contrast study): Lungs and pleura: No pleural effusion. No actionable lung nodules. Mediastinum: No pathologic lymphadenopathy. There is a small hiatal hernia. Upper abdomen: Partially seen, unremarkable. Bones: No acute or suspicious abnormality. IMPRESSION: No findings of coronary artery calcification can be seen. Additional findings: Calcification of the aortic arch Small hiatal hernia Coronary artery calcium scores have been identified as an independent risk factor for future acute co ronary syndromes and correlate with the quantity of coronary atherosclerotic plaque. However, they do not correlate directly with the degree of stenosis. A low score does not exclude a significant coron christoph artery stenosis. Risk of future coronary events should be assessed with individual patient risk factors and medical hi story. Consider correlation with risk percentiles using the [place] (Multi-Ethnic Study of Atheroscleros is) calculator. CAC-DRS Categories: A0: 0, very low risk, consider repeat coronary calcium study every 3-7 years for surveillance. A1: 1-99, mildly increased risk, consider moderate-intensity statin A2: 100-299: moderately increased risk, consider moderate to high-intensity statin + ASA 81mg A3: >300: moderately to severely increased risk, consider high-intensity statin + ASA 81mg Reviewed by: Michelet Diaz MD on 07/23/2023 10:57 AM DALIA Approved by: Michelet Diaz MD on 07/23/2023 10:57 AM DALIA Station ID: [id number]
== END 2023-07-23 09:55 | disposition home or self-care (01) ==
LOC: DI 09:54
PROVIDERS: ATTEND Registered Nurse
DX: I35.0 Nonrheumatic aortic (valve) stenosis (principal); I70.0 Atherosclerosis of aorta; K44.9 Diaphragmatic hernia without obstruction or gangrene; M81.0 Age-related osteoporosis without current pathological fracture; Z78.0 Asymptomatic menopausal state